=== PATIENT | male | born 1950 | race Caucasian/White ===

== ENCOUNTER 2020-02-18 09:47 | Inpatient (IN) | payer OTHER, MEDICARE ==
[~2020-02-18] VITALS: Ht 177.8 cm; Wt 98.6 kg
[~2020-02-18 09:47] MED LIST: ALBU.083IS IH; ALBU90OI INH; ALBU90OI6 INH; AMLO5 PO; ATOR10 PO; Aspir 8181 MG PO; BUPR75 PO; CARBIDOPA LEVO PO; CARBIDOPA/LEVODOPA; CARV6.25 PO; CITA20 PO; CYCL10 PO; Carbidopa-Levo1 EACH PO; DESI50 PO; DOC250 PO; DOCCAL240 PO; FISH1000 PO; FLUT.05NI; FURO20 PO; GABA300 PO; GABA600 PO; GLIP10 PO; GLUCOSE4 GM PO; HCTZ/LOSARTAN; HYDCHL25 PO; HYDR1TAB94 PO; INSUASPI SC; INSUGL100V; INSULANPEN SC; INSULIN AS100 UNIT/9 SC; LOSA50 PO; MAGNESIUM OXID500 MG PO; NAPR250 PO; OMEGA-3 FISH O1 EAC6 PO; OMEP20ER PO; OXYC10ER PO; Prilosec Otc20 MG PO; QUET300 PO; SIMV40 PO; TRAZ50 PO; TRULICITY1.5 MG/0.1 SC
[2020-02-18 10:19] LABS: BASOPHILS ABSOLUTE AUTO 0.07 K/mm3 (0.00-0.23); BASOPHILS PERCENT AUTO 1 % (0-2); EOSINOPHILS ABSOLUTE AUTO 0.31 K/mm3 (0.00-0.68); EOSINOPHILS PERCENT AUTO 2 % (0-6); Hematocrit 33.2 % (37.0-53.0); Hemoglobin 10.9 g/dL (13.5-17.5); IMMATURE GRAN ABSOLUTE AUTO 0.15 K/mm3 (0.00-0.10); IMMATURE GRAN PERCENT AUTO 1 % (0-1); LYMPHOCYTES ABSOLUTE AUTO 1.79 K/mm3 (0.84-5.20); LYMPHOCYTES PERCENT AUTO 12 % (21-46); MONOCYTES ABSOLUTE AUTO 1.95 K/mm3 (0.16-1.47); MONOCYTES PERCENT AUTO 13 % (4-13); Mean Corpuscular HGB 30.1 pg (26.0-34.0); Mean Corpuscular HGB Conc 32.8 g/dL (31.5-36.5); Mean Corpuscular Volume 92 fL (80-100); Mean Platelet Volume 10.6 fL (9.1-12.4); NEUTROPHILS ABSOLUTE AUTO 10.88 K/mm3 (1.96-9.15); NEUTROPHILS PERCENT AUTO 72 % (41-73); Platelet Count 157 K/mm3 (150-400); RDW Coefficient Variation 14.2 % (11.7-14.2); RDW Standard Deviation 47.1 fL (35.1-46.3); Red Blood Cell Count 3.62 M/mm3 (4.30-5.90); White Blood Cell Count 15.15 K/mm3 (4.00-11.30)
[2020-02-18 10:32] LABS: International Normalized Ratio 1.6; Prothrombin Time Results 16.7 Sec (9.7-11.5)
[2020-02-18 10:42] LABS: Alanine Aminotransfer (ALT/SGP 49 U/L (12-78); Albumin/Globulin Ratio 0.5 (0.8-1.8); Alk Phos 223 U/L (50-136); Anion Gap 7 mmol/L (6-16); Aspartate Aminotrans (AST/SGOT 96 U/L (12-37); Bilirubin, Total 1.3 mg/dL (0.1-1.0); Blood Urea Nitrogen 62 mg/dL (8-24); CO2, Blood 25 mmol/L (21-32); Calcium, Blood 8.3 mg/dL (8.5-10.1); Chloride, Blood 106 mmol/L (98-108); Creatinine, Blood 1.32 mg/dL (0.60-1.20); Ethanol (Alcohol), Blood, Med <3 mg/dL; Glomerular Filtration Rate 57 (60-); Glucose, Blood 172 mg/dL (70-99); Potassium, Blood 5.1 mmol/L (3.5-5.5); Sodium, Blood 138 mmol/L (136-145)
[2020-02-18 15:44] LABS: Influenza A, PCR Negative (NEGATIVE); Influenza B, PCR Negative (NEGATIVE); Resp Syncytial Virus, PCR Negative (NEGATIVE); SARS-Cov-2 (COVID-19) PCR, MMC Negative (NEGATIVE)
[2020-02-18 16:57] LABS: Source, Urine Catheter
[2020-02-18 17:03] LABS: Appearance, Urine Clear (Clear); Blood, Urine Neg (Neg); Color, Urine Amber (P-Yellow); Glucose Qualitative, Urine Neg (Neg); Ketones, Urine 1+ (Neg); Leukocyte Esterase, Urine 1+ (Neg); Nitrite, Urine Neg (Neg); Protein, Urine Neg (Neg); Urobilinogen, Urine 2+ (Normal)
[2020-02-18 17:05] LABS: Bilirubin, Urine 1+ (Neg)
[2020-02-18 17:11] LABS: Bacteria Few /hpf; Mucus Light (0-Heavy); Red Blood Cells, Urine 0-2 /hpf (0-2); Squamous Epithelial Cells Rare /hpf (Few)
[2020-02-18 17:17] LABS: U Amphetamine Screen Not Detected; U Barbituate Screen Not Detected; U Benzodiazapine Screen Not Detected; U Buprenorphine Screen Not Detected; U Cannabinoids Screen Not Detected; U Cocaine Screen Not Detected; U Methadone Screen Not Detected; U Methamphetamine Screen Not Detected; U Opiates Screen Not Detected; U Oxycodone Screen DETECTED; U Phencyclidine Screen Not Detected; U Propoxyphene Screen Not Detected
--- NOTE | 2020-02-18 18:08 | NUR ---
PT ARRIVED IN THE UNIT VIA STRETCHER, REPORT RECEIVED FROM ARSENIO GAFFNEY, PT TRANSFERRED TO BED VIA SLIDE SHEET. PT WAS OUT UPON ARRIVAL ATIVAN WAS GIVENX3 IN THE ER, PT WAS RESPONSIVE TO TOUCH GARBLES AND MOANS. VITALS HRR SINUS 90'S, BP SYSTOLIC 125, SATS ABOVE 94% ON 1L OF O2, AFEBRILE. RECTAL TUBE IN PLACE DRAINING LOOSE BROWN STOOL, LACTULOSE ENEMA WAS GIVEN IN THE ER, UMANA IN PLACE WELL DRAINING VIA GRAVITY URINE YELLOW ORANGE IN COLOR. OCREOTIDE GTT RUNNING AT 25MLS/HR. , PT ON IV ABO ROCEPHIN DAILY. PT CURRENTLY NPO AND IS ON BED REST. BED IN LOWEST POSITION AND ALARM ON FOR SAFETY. PT STILL ASLEEP AT THIS TIME, CALL LIGHTS IN REACH WILL REPORT TO ONCOMING SHIFT
[2020-02-18 18:54] LABS: Hematocrit 32.8 % (37.0-53.0); Hemoglobin 10.7 g/dL (13.5-17.5)
[2020-02-18 22:22] LABS: Hematocrit 33.7 % (37.0-53.0); Hemoglobin 11.1 g/dL (13.5-17.5)
[2020-02-19 04:11] LABS: Hematocrit 35.4 % (37.0-53.0); Hemoglobin 11.7 g/dL (13.5-17.5); Mean Corpuscular HGB 30.1 pg (26.0-34.0); Mean Corpuscular HGB Conc 33.1 g/dL (31.5-36.5); Mean Corpuscular Volume 91 fL (80-100); Mean Platelet Volume 10.4 fL (9.1-12.4); Platelet Count 178 K/mm3 (150-400); RDW Coefficient Variation 14.5 % (11.7-14.2); RDW Standard Deviation 47.2 fL (35.1-46.3); Red Blood Cell Count 3.89 M/mm3 (4.30-5.90); White Blood Cell Count 17.67 K/mm3 (4.00-11.30)
[2020-02-19 04:37] LABS: Alanine Aminotransfer (ALT/SGP 67 U/L (12-78); Albumin, Blood 2.3 g/dL (3.4-5.0); Albumin/Globulin Ratio 0.6 (0.8-1.8); Alk Phos 229 U/L (50-136); Anion Gap 9 mmol/L (6-16); Aspartate Aminotrans (AST/SGOT 149 U/L (12-37); Bilirubin, Total 2.2 mg/dL (0.1-1.0); Blood Urea Nitrogen 63 mg/dL (8-24); CO2, Blood 21 mmol/L (21-32); Calcium, Blood 8.2 mg/dL (8.5-10.1); Chloride, Blood 112 mmol/L (98-108); Creatinine, Blood 1.05 mg/dL (0.60-1.20); Glomerular Filtration Rate >60 (60-); Glucose, Blood 178 mg/dL (70-99); Potassium, Blood 4.5 mmol/L (3.5-5.5); Sodium, Blood 142 mmol/L (136-145); Total Protein, Blood 6.3 g/dL (6.4-8.2)
--- NOTE | 2020-02-19 07:45 | NUR ---
SHIFT SUMMARY PT WAS MOSTLY UNRESPONSIVE T/O THE SHIFT RESPONDING TO STERNAL RUBS AND LOUD VOICE WITH GRUNTING AND OPENING EYES BRIEFLY. PT TOSSED IN BED ALL NIGHT FREQURNTLY GETTING TANGLED IN IV TUBING AND O2 TUBING. UMANA CATH AND RECTAL TUBE INPLACE AND DRAINING TO GRAVITY. ENEMAS ADMINISTERED THROUGH RECTAL TUBE. VITALS STABLE WITH BP 144-116 SYSTOLIC, HR IN THE 90'S, O2 SATS IN THE 90'S MAINLY ON ROOM AIR DUE TO PT PULLING OFF NC. PT WOULD REST BUT BECAME AGITATED AND RESTLESS WHEN PERFORMING CARE. WILL CONTINUE TO MONITOR UNTIL SHIFT CHANGE.
--- NOTE | 2020-02-19 09:30 | NUR ---
PT REMAINS RESTLESS, TURNING AND MOVING ON THE BED. RECTAL TUBE PULLED BY PT. WILL MONITOR
--- NOTE | 2020-02-19 11:20 | NUR ---
ASSUMED CARE OF PATIENT. REPORT RECEIVED FROM LUIS GOVEA RN.
--- NOTE | 2020-02-19 17:04 | NUR ---
PATIENT DOWN TO DAYSURGERY VIA BED.
--- NOTE | 2020-02-19 17:27 | NUR ---
02/19/20 1727 Abdias Joya See Anesthesia record. PHONE CALL TO SPOUSE FOR CONSCENT
--- NOTE | 2020-02-19 18:53 | NUR ---
PATIENT RETURNED FROM PROCEDURE AT 181. JULIANNE CONDE GOT PATIENT SETTLED AND STARTED A NEW IV, ONE IV INFILTRATED DURING PROCEDURE. I ARRIVED IN ROOM AT 1830. PATIENT CONTINUES TO FIDGET AROUND IN BED. HE IS NOT ABLE TO TELL ME HIS NAME OR HIS BIRTHDAY. HE DOES NOT FOLLOW COMMANDS. THIS IS UNCHANGED FROM PREVIOUSLY. JULIANNE STATED THAT SHE HAD TO TURN THE PATIENT UP TO 6L O2 VIA NC WHEN HE RETURNED TO KEEP SPO2 >90'S. LUNGS SOUND EXP WHEEZES IN THE UPPER LOBES WITH CRACKLES THROUGHOUT. BP 147/106. CALLED DR. MICHEL. NOTIFIED HIM OF PATIENT'S INCREASED OXYGEN REQUIREMENTS AFTER PROCEDURE. DISCUSSED FLUID BALANCE. ALSO DISCUSSED PATIENT'S LEVEL OF CONSCIOUSNESS, PATIENT HAS BEEN MINIMALLY RESPONSIVE THROUGHOUT THE SHIFT. HE ORDERED LASIX 40 MG IV X1 NOW AND ASKED THAT I CALL DR. FRIEDMAN ( ON [facility]) TO NOTIFY HER. CALLED DR. FRIEDMAN AND NOTIFIED HER OF PATIENT'S INCREASE IN OXYGEN REQUIREMENTS AND LOC. DR. FRIEDMAN REVIEWED CHART AND STATED THAT SHE WOULD PUT IN ORDERS FOR LABS. AGREED WITH DR. MICHEL'S PLAN FOR LASIX 40 MG IV X1 NOW.
[2020-02-19 18:59] LABS: International Normalized Ratio 1.96; Prothrombin Time Results 20.2 Sec (9.7-11.5)
[2020-02-19 19:16] LABS: BASOPHILS ABSOLUTE AUTO 0.07 K/mm3 (0.00-0.23); BASOPHILS PERCENT AUTO 0 % (0-2); EOSINOPHILS ABSOLUTE AUTO 0.17 K/mm3 (0.00-0.68); EOSINOPHILS PERCENT AUTO 1 % (0-6); Hemoglobin 11.2 g/dL (13.5-17.5); IMMATURE GRAN ABSOLUTE AUTO 0.23 K/mm3 (0.00-0.10); IMMATURE GRAN PERCENT AUTO 1 % (0-1); LYMPHOCYTES ABSOLUTE AUTO 1.61 K/mm3 (0.84-5.20); LYMPHOCYTES PERCENT AUTO 8 % (21-46); MONOCYTES PERCENT AUTO 11 % (4-13); Mean Corpuscular HGB 30.4 pg (26.0-34.0); Mean Corpuscular HGB Conc 32.9 g/dL (31.5-36.5); Mean Corpuscular Volume 92 fL (80-100); NEUTROPHILS ABSOLUTE AUTO 15.12 K/mm3 (1.96-9.15); NEUTROPHILS PERCENT AUTO 78 % (41-73); Platelet Count 169 K/mm3 (150-400); RDW Coefficient Variation 14.6 % (11.7-14.2); RDW Standard Deviation 48.1 fL (35.1-46.3); Red Blood Cell Count 3.69 M/mm3 (4.30-5.90)
[2020-02-19 19:37] LABS: Anion Gap 11 mmol/L (6-16); Blood Urea Nitrogen 55 mg/dL (8-24); Bun/Creatinine Ratio 61.7 (12.0-20.0); CO2, Blood 20 mmol/L (21-32); Calcium, Blood 8.2 mg/dL (8.5-10.1); Chloride, Blood 115 mmol/L (98-108); Creatinine, Blood 0.89 mg/dL (0.60-1.20); Glomerular Filtration Rate >60 (60-); Glucose, Blood 205 mg/dL (70-99); Potassium, Blood 4.5 mmol/L (3.5-5.5); Sodium, Blood 146 mmol/L (136-145)
--- NOTE | 2020-02-19 23:30 | NUR ---
ASSUMPTION OF CARE RECEIVED BEDSIDE REPORT FROM VIKTORIA GAFFNEY AND ASSUMED CARE FOR REMAINDER OF SHIFT. PT IS RESTLESS, ROLLING FROM SIDE TO SIDE FREQUENTLY, PULLING AT NASAL CANNULA, CONT BIOX IN PLACE WITH SATS 93% ON 6L. OCTREOTIDE RUNNING AT 25 ML/HR. BED ALARM ON. WILL CONTINUE TO MONITOR FREQUENTLY AND WILL CONTINUE PLAN OF CARE.
--- NOTE | 2020-02-19 23:51 | NUR ---
SHIFT SUMMARY: PATIENT RESPONDS TO VERBAL STIMULATION. UNABLE TO SAY HIS NAME OR FOLLOW DIRECTIONS. RESTLESS IN BED, REPOSITIONS SELF. LACTULOSE ENEMAS GIVEN, MOD AMT SOFT STOOL RETURNED. REMAINS NPO. HAD PROCEDURE THIS EVENING. REQUIRED 6L O2 VIA NC UPON RETURN FROM PROCEDURE AND LUNGS HAD CRACKLES/WHEEZES, ONE TIME ORDER LASIX GIVEN, LUNG SOUNDS IMPROVED. PATIENT FREQUENTLY PULLS OFF OXYGEN, HAVE TO REPLACE FREQUENTLY, CONTINUES ON 6L NC WITH IT PLACED IN HIS MOUTH HE DOES NOT LIKE TO HAVE IT IN HIS NOSE. REPORT GIVEN TO RICK GAFFNEY.
[2020-02-20 03:23] LABS: Hematocrit 34.8 % (37.0-53.0); Hemoglobin 11.4 g/dL (13.5-17.5); Mean Corpuscular HGB 29.6 pg (26.0-34.0); Mean Corpuscular HGB Conc 32.8 g/dL (31.5-36.5); Mean Corpuscular Volume 90 fL (80-100); Mean Platelet Volume 9.8 fL (9.1-12.4); Platelet Count 137 K/mm3 (150-400); RDW Coefficient Variation 14.7 % (11.7-14.2); RDW Standard Deviation 47.9 fL (35.1-46.3); Red Blood Cell Count 3.85 M/mm3 (4.30-5.90)
[2020-02-20 03:39] LABS: Anion Gap 10 mmol/L (6-16); Blood Urea Nitrogen 53 mg/dL (8-24); Bun/Creatinine Ratio 56.6 (12.0-20.0); CO2, Blood 19 mmol/L (21-32); Calcium, Blood 8.1 mg/dL (8.5-10.1); Chloride, Blood 118 mmol/L (98-108); Creatinine, Blood 0.94 mg/dL (0.60-1.20); Glomerular Filtration Rate >60 (60-); Glucose, Blood 212 mg/dL (70-99); Potassium, Blood 4.3 mmol/L (3.5-5.5); Sodium, Blood 147 mmol/L (136-145)
--- NOTE | 2020-02-20 06:30 | NUR ---
SHIFT SUMMARY PT HAS BEEN RESTLESS AND FREQUENTLY DISPLACING O2 WITH ROLLING FROM SIDE TO SIDE. GROSS MOTOR MOVEMENT OF ALL EXTREMITIES, NO PURPOSEFUL FINE MOTOR SKILLS AND DOES NOT FOLLOW COMMANDS. OPENS EYES TO VOICE, NAME RECOGNITION, LIMITED VERBALIZING. INCREASING WORK OF BREATHING AND DESATS FREQUENTLY. CONT BIOX WITH SATS IN LOW 90'S WITH VENTI MASK AT 45%. PLACED SOFT WRIST RESTRAINTS ON BILATERAL UE'S FOR PROTECTION OF LINES/TUBES. OVERALL STATUS: WORSENING R/T INCREASING WORK OF BREATHING AND CONFUSION. GAVE REPORT AT BEDSIDE TO DILLON GAFFNEY WHILE RT (TOBIAS) PRESENT IN THE ROOM. PT HAS BEEN PLACED ON NON-REBREATHER TO MAINTAIN SATS >90%. PLAN FOR UPDATE TO HOSPITALIST KRISTI FOR FURTHER ORDERS AT THIS TIME.
[2020-02-20 07:09] LABS: HBSAG SCREEN Negative (Negative); HEP B CORE AB, TOT Negative (Negative); HEP C VIRUS AB 0.2 (0.0-0.9)
[2020-02-20 08:09] LABS: HEP A AB, IGM Negative (Negative); HEP B CORE AB, IGM Negative (Negative)
[2020-02-20 08:33] LABS: PCO2 Arterial 34.7 mmHg (35-45); PO2 Arterial 77.6 mmHg (80-100); pH Blood Arterial 7.42 (7.35-7.45)
--- NOTE | 2020-02-20 09:35 | NUR ---
ASSUMED CARE OF PT, RECEIVED REPORT FROM GULSHAN CABRERA. PT HAD UPPER ENDOSCOPY 02/19/20, HAD 6 BANDS AND 1 BIOPSY. PER REPORT, UPON RETURNING TO ROOM PT BEGAN TO REQUIRE OXYGEN THERAPY WITH AN INCREASING NEED TODAY. PT INITIALLY RECEIVING O2 VIA VENTI MASK AT 45% WITH O2 SATS AT 86%, WAS PLACED ON NONREBREATHER AT 15 L/MIN WITH O2 SATS UP TO 94%. DR MICHEL CONSULTED, STAT CHEST X-RAY AND ABG COMPLETED AND PT PLACED ON BIPAP. PT WAS IN SOFT RESTRAINTS UNTIL DECISION TO PLACE PT ON BIPAP. RESTRAINTS REMOVED, PT MOVING ARMS FREELY AND FREQUENTLY WITH NUMEROUS ATTEMPTS TO PULL BIPAP OFF. PT EASILY PREVENTED FROM DOING SO, BUT QUICKLY REACHES BACK UP TO TOUCH BIPAP. PT HAS BEEN TRANSFERED TO ICU FOR CONTINUATION OF CARE. BEDSIDE REPORT GIVEN TO GULSHAN PENG.
--- NOTE | 2020-02-20 11:23 | NUR ---
PT TRANSFERRED TO ICU FROM PCU AT 0915. REPORT FROM DILLON GAFFNEY. PT ON CPAP 8/40%. PT FIDGITING IN BED. DIFFICULT TO REDIRECT. RESTRAINTS PLACED ON ARRIVAL TO UNIT. PT CONTINUES TO PULL ON RESTRAINTS AND TWIST IN BED. DR MICHEL NOTIFIED. PRECEDEX GTT ORDERED AND STARTED, ELECTROMECHANICAL ENGINEER CONSULT ORDERED. DR LEMUS AWARE. PT PALE, COOL. LUNGS c CRACKLES IN BASES. SCATTERED RASH TO BODY, CONCENTRATED ON KNEES, BLANACHS. ABRASIONS TO MEDIAL AND LATERAL ANKLES. ABD ROUND, FIRM. UMANA PATENT, DRAINING CLEAR YELLOW URINE TO GRAVITY. VSS. WILL CONTINUE TO MONITOR.
[2020-02-20 14:37] LABS: International Normalized Ratio 2.01; Prothrombin Time Results 20.7 Sec (9.7-11.5)
[2020-02-20 15:07] LABS: Source, Urine Catheter
[2020-02-20 15:19] LABS: Automated BF WBC Count 0.077 K/mm3 (0-999); Body Fluid WBC Count 77 /mm3 (0-999)
[2020-02-20 15:26] LABS: Albumin, Body Fluid 0.2 g/dL
[2020-02-20 15:29] LABS: Glucose, Body Fluid 232 mg/dL
[2020-02-20 15:37] LABS: Appearance, Urine Clear (Clear); Bilirubin, Urine Neg (Neg); Blood, Urine 1+ (Neg); Color, Urine Amber (P-Yellow); Glucose Qualitative, Urine Neg (Neg); Ketones, Urine Neg (Neg); Leukocyte Esterase, Urine Neg (Neg); Nitrite, Urine Neg (Neg); Protein, Urine Neg (Neg); Specific Gravity, Urine 1.015 (1.003-1.022); Urobilinogen, Urine 1+ (Normal)
[2020-02-20 16:02] LABS: RBC Count, Body Fluid 7 /mm3 (0-0)
[2020-02-20 16:03] LABS: Appearance, Body Fluid Clear (Clear); Color, Body Fluid L Yellow (None-Yellow)
[2020-02-20 16:10] LABS: Bacteria Few /hpf; Mucus Mod (0-Heavy); Renal Epithelial Rare /hpf (0-Rare); Squamous Epithelial Cells Not Seen /hpf (Few); Transitional Epithelial Cells Few /hpf (0-Rare); White Blood Cells, Urine 0-2 /hpf (0-5)
[2020-02-20 16:46] LABS: Total Cell Count, Body Fluid 100
--- NOTE | 2020-02-20 17:29 | NUR ---
SHIFT SUMMARY PT TRANSFERRED TO ICU FROM PCU THIS SHIFT. PT ON CPAP 8/40% AND PRECEDEX 0.1 MCG/KG/HR. PT RESPONSIVE TO PAINFUL STIMULI. TOLERATING CPAP WELL. LUNGS DIMINISHED IN BASES. PT DIURESED THIS SHIFT, 500 ML DARK EZEQUIEL URINE OUT, SENT TO LAB FOR CULTURE. PARACENTESIS THIS SHIFT, 800 ML CLEAR YELLOW URINE OUT, SENT TO LAB. PT TOLERATED PROCEDURE WELL. NO ALBUMIN POST PROCEDURE PER PHARMACY. BP STABLE. NSR, RATE 60-70'S. WILL CONTINUE TO MONITOR UNTIL REPORT TO ONCOMING NURSE.
--- NOTE | 2020-02-20 19:00 | NUR ---
ASSUMED PT CARE BEDSIDE REPORT FROM ONEIL GAFFNEY, ASSUMED PT CARE. PT CONFUSED AND THRASHING AROUND. PT IN BILATERAL WRIST RESTRAINTS AND ROCKY NOW APPLIED. PT ON BIPAP, NOT TOLERATING MASK, CONSTANTLY SHAKING HEAD BACK AND FORTH AND DISCONNECTING TUBING. MULT STAFF AT [facility], [facility] ATTEMPTS TO REORIENT AND REASSURE PT. PT HAS 20G TO RIGHT AC WITH PRECEDEX INF AT 0.7MCG/KG/HR, SITE WNL. PT HAS 20G TO LEFT AC WITH OCTREOTIDE INF AT 25ML/HR, SITE WNL. SCDS IN PLACE. PT MOVES ALL EXTREMITIES INDEPENDENTLY. PT HAS UMANA DRAINING CLEAR YELLOW URINE. ATTENDS IN PLACE, CLEAN AND DRY. ST IN 90S PER MONITOR. BP STABLE. CALL LIGHT IN REACH, FREQUENT MONITORING. SEE FULL SHIFT ASSESSMENT.
[2020-02-21 03:44] LABS: BASOPHILS ABSOLUTE AUTO 0.01 K/mm3 (0.00-0.23); BASOPHILS PERCENT AUTO 0 % (0-2); EOSINOPHILS ABSOLUTE AUTO 0.01 K/mm3 (0.00-0.68); EOSINOPHILS PERCENT AUTO 0 % (0-6); Hematocrit 31.8 % (37.0-53.0); IMMATURE GRAN ABSOLUTE AUTO 0.04 K/mm3 (0.00-0.10); IMMATURE GRAN PERCENT AUTO 0 % (0-1); LYMPHOCYTES ABSOLUTE AUTO 0.94 K/mm3 (0.84-5.20); LYMPHOCYTES PERCENT AUTO 11 % (21-46); MONOCYTES ABSOLUTE AUTO 0.68 K/mm3 (0.16-1.47); MONOCYTES PERCENT AUTO 8 % (4-13); Mean Corpuscular HGB 30.2 pg (26.0-34.0); Mean Corpuscular HGB Conc 31.4 g/dL (31.5-36.5); Mean Platelet Volume 10.7 fL (9.1-12.4); NEUTROPHILS ABSOLUTE AUTO 7.24 K/mm3 (1.96-9.15); NEUTROPHILS PERCENT AUTO 81 % (41-73); NRBC ABSOLUTE 0.02 K/mm3 (0.00-0.02); NRBC Auto 0.2 /100 WBC (0.0-0.2); Platelet Count 75 K/mm3 (150-400); RDW Standard Deviation 51.3 fL (35.1-46.3); Red Blood Cell Count 3.31 M/mm3 (4.30-5.90); White Blood Cell Count 8.92 K/mm3 (4.00-11.30)
[2020-02-21 03:47] LABS: Mean Corpuscular Volume 96 fL (80-100)
[2020-02-21 03:56] LABS: International Normalized Ratio 2.29; Prothrombin Time Results 23.4 Sec (9.7-11.5)
[2020-02-21 04:02] LABS: Albumin/Globulin Ratio 0.6 (0.8-1.8); Bilirubin, Total 1.7 mg/dL (0.1-1.0); Calcium, Blood 8.1 mg/dL (8.5-10.1); Creatinine, Blood 1.4 mg/dL (0.60-1.20); Globulin, Blood 3.4 g/dL (2.2-4.0); Total Protein, Blood 5.4 g/dL (6.4-8.2)
--- NOTE | 2020-02-21 10:31 | NUR ---
Spoke with Dr Elder and discussed case prior to Pt visit. Dr Elder reports family may benefit from discussion regarding code status. Pt resting in bed and receiving care from Bedside RN Yoselyn. Discussed case and plan of care. Pt's Oldest daughter Marii waiting out in ICU hallway. Provided update and discussed plan of care. Engaged in therapeutic discussion regarding the importance of family considering code status and Pt's wishes for life sustaining treatment. Marii tearful at times during discussion and this RN offered emotional support. Marii states she doesn't think Pt would want CPR in his current condition. Instructed plan to call Pt's spouse to have further conversation regarding code status. Marii reports not spending much time with Pt due to strained relationship between her and Pt's spouse. Marii expresses appreciation of conversation and reports no other concerns at this time. Attempted to contacted Pt's spouse Rachel. Left message on [employer] with request for a return phone call. Palliative Care will remain available for supportive and therapeutic visits.
--- NOTE | 2020-02-21 13:55 | NUR ---
REASSESSMENT PT WAS MINIMALLY RESPONSIVE THIS MORNING SO PRECEDEX WAS SLOWLY TITRATED OFF. OXYGEN HAD ALSO BEEN ABLE TO TITRATE DOWN TO 5L ON THE HIGH FLOW NC. ABOUT 1230 PT ALL OF A SUDDEN WOKE UP, ORIENTED ONLY TO SELF, TRYING TO GET OUT OF BED, PULLING AT IV AND OXYGEN. PT ALSO STARTED TO DESATURATE WITH ALL THE ACTIVITY WITH SPO2 IN THE LOW 80S WITH HI FLOW NC TURNED UP TO 10L. RT NOTIFIED AND BROUGHT CPAP FOR PT. PRECEDEX TURNED UP. ATIVAN GIVEN WELL. PT PLACED IN WRIST RESTRAINTS AND VEST TAKEN OFF PT WAS NOW JUST PULLING AT LINES. PT RELAXED SOME WITH MEDICATIONS, BUT STILL VERY RESTLESS AND AGITATED. FENTANYL GIVEN AND PT FINALLY RELAXED. AFTER PT WAS SEDATED, REPOSITIONED HIM. RECTAL TUBE HAD COME OUT DURING PT'S AGITATION AND THE STOOL ON THE END WAS BROWN AND JUST SOFT SO TUBE NOT REPLACED AT THIS TIME. PT RESTING QUIETLY NOW. PRECEDEX AT 0.5MCG/KGHR, CPAP ON WITH 5L BLEED IN. WITH LOWER PRECEDEX RATE PT'S HR HAD BEEN IN THE 60S AND 70S, NOW WITH PRECEDEX BACK UP HR SB IN THE 50S AGAIN, BP STABLE. LUNGS CLEAR, DIM. PT'S CALLED EARLIER THIS MORNING AND STATED THAT PT WOULD NOT WANT TO BE ON LIFE SUPPORT. DISCUSSED CODE STATUS OPTIONS WITH HIM AND PT STATES SHE THINKS THAT HE WOULD WANT TO BE DNR. PASSED THIS ON TO DR. LEMUS AND SHE STATED SHE WOULD CALL PT'S LATER TO UPDATE HER AND DISCUSS CODE STATUS WITH HER.
--- NOTE | 2020-02-21 18:43 | NUR ---
SHIFT SUMMARY PT REMAINS SEDATED AFTER GETTING VERY AGITATED WHEN SEDATION WAS TITRATED DOWN TODAY. PT DESATURATES QUICKLY WITH MINIMAL STIMULUS. REMAINS ON CPAP, PRESSURE 8 WITH 7L BLEED IN. WHEN RESTRAINTS ARE OFF PT QUICKLY STARTS REACHING FOR CPAP MASK. LUNGS STILL CLEAR, BUT DIM. SB, BP STABLE. ABD MODERATELY DISTENDED STILL, HYPOACTIVE BT. NO BM THIS AFTERNOON. UMANA WITH CL EZEQUIEL URINE. SPOKE WITH PT'S TWICE TODAY TO PROVIDE UPDATES. CONTINUING TO MONITOR.
--- NOTE | 2020-02-21 19:30 | NUR ---
ASSUMED PT CARE BEDSIDE REPORT WITH VIKTORIA TORRES RN. ASSUMED PT CARE. PT SEDATED WITH PRECEDEX AT 0.3MCG/KG/KG, CURRENTLY RESTING COMFORTABLY. SANDOSTATIN INF AT 25ML/HR TO 20G IN R WRIST. D5 INFUSING AT 75ML/HR TO 20G TO ALEXANDRA. SITES WNL, DRESSINGS C/D/I. BILATERAL SOFT WRIST RESTRAINTS IN PLACE AND SECURE. UMANA DRAINING EZEQUIEL COLORED URINE. PT RESPONDS TO VERBAL AND TACTILE STIMULI. RELAXES EASILY. LUNG SOUNDS DIMINISHED, PT ON CPAP, PRESSURE OF 8 WITH 8L BLEED IN. STATS >92%. BP STABLE. HR 50S SB. PULSES STRONG AND EQUAL. PT MOVES SOME INDEPENDENTLY IN BED. SEE FULL ASSESSMENT.
--- NOTE | 2020-02-21 20:30 | NUR ---
DNI DR LEMUS SPOKE WITH PTS KUSHAL AND AFTER DISCUSSION PT CODE STATUS CHANGED TO DNI.
[2020-02-22 04:13] LABS: BASOPHILS ABSOLUTE AUTO 0.01 K/mm3 (0.00-0.23); BASOPHILS PERCENT AUTO 0 % (0-2); EOSINOPHILS PERCENT AUTO 1 % (0-6); Hematocrit 32.5 % (37.0-53.0); Hemoglobin 10.4 g/dL (13.5-17.5); IMMATURE GRAN ABSOLUTE AUTO 0.05 K/mm3 (0.00-0.10); IMMATURE GRAN PERCENT AUTO 1 % (0-1); LYMPHOCYTES ABSOLUTE AUTO 0.85 K/mm3 (0.84-5.20); LYMPHOCYTES PERCENT AUTO 9 % (21-46); MONOCYTES ABSOLUTE AUTO 0.79 K/mm3 (0.16-1.47); MONOCYTES PERCENT AUTO 8 % (4-13); Mean Corpuscular HGB 30.2 pg (26.0-34.0); Mean Corpuscular Volume 95 fL (80-100); Mean Platelet Volume 11.7 fL (9.1-12.4); NEUTROPHILS ABSOLUTE AUTO 8.13 K/mm3 (1.96-9.15); NEUTROPHILS PERCENT AUTO 82 % (41-73); NRBC ABSOLUTE 0.04 K/mm3 (0.00-0.02); NRBC Auto 0.4 /100 WBC (0.0-0.2); Platelet Count 65 K/mm3 (150-400); RDW Coefficient Variation 15.2 % (11.7-14.2); Red Blood Cell Count 3.44 M/mm3 (4.30-5.90); White Blood Cell Count 9.93 K/mm3 (4.00-11.30)
[2020-02-22 04:27] LABS: International Normalized Ratio 2.58; Prothrombin Time Results 26.2 Sec (9.7-11.5)
[2020-02-22 04:38] LABS: Magnesium, Blood 2.5 mg/dL (1.6-2.4)
[2020-02-22 04:39] LABS: Albumin, Blood 2.5 g/dL (3.4-5.0); Albumin/Globulin Ratio 0.8 (0.8-1.8); Bilirubin, Total 1.3 mg/dL (0.1-1.0); Bun/Creatinine Ratio 55.9 (12.0-20.0); Creatinine, Blood 1.36 mg/dL (0.60-1.20); Globulin, Blood 3.2 g/dL (2.2-4.0); Potassium, Blood 3.3 mmol/L (3.5-5.5); Total Protein, Blood 5.7 g/dL (6.4-8.2)
--- NOTE | 2020-02-22 06:18 | NUR ---
SHIFT SUMMARY PT HAD UNEVENTFUL SHIFT. REMAINS SEDATED ON PRECEDEX 0.4MCG/KG/HR, PT CONFUSED, RESPONSIVE TO VERBAL AND TACTILE STIMULI. PT HAS 20G TO ALEXANDRA WITH D5 INF AT 75ML/HR AND PRECEDEX. PT HAS 20G TO RIGHT WRIST WITH SANDOSTATIN INF AT 25ML/HR. HR 70S SR, BP STABLE. LUNG SOUNDS DIMINISHED, PT ON CPAP, PRESSURE 10 WITH 10L BLEED IN. PT MOVES ALL EXT, RESTRAINTS SECURE. UMANA DRAINING EZEQUIEL COLORED URINE. NO BM. ABD SOFT BUT DISTENDED. BOWEL SOUNDS ACTIVE. WILL REPORT TO ONCOMING SHIFT.
--- NOTE | 2020-02-22 10:39 | NUR ---
ASSUMPTION OF CARE ASSUMED CARE FROM NOC RN. PT RESTING DURING REPORT. PERCEDEX, SANDOSTATIN, D5 CONTINUOUS INFUSIONS RUNNING DURING SHIFT CHANGE. PT RECEIVED MORNING MEDICATIONS INCLUDING LACTULOSE ENEMA. SCANT AMOUNTS OF STOOL WERE RELEASED BUT NO LARGE FORMED STOOLS. PT BECAME AGITATED FOLLOWING THE ENEMA AND WAS MOANING AND CONFUSED ABOUT BEING IN RESTRAINTS. SOFT WRIST RESTRAINTS HAVE BEEN ON THROUGHOUT THE SHIFT AND THE ORDER WAS RENEWED AT 0800. CIRCULATION AND SKIN IS WNL. RESTRAINTS ARE APPLIED PT CONTINUES TO PULL AT IV LINES, CATHETER AND CPAP. PT IS CONFUSED.
--- NOTE | 2020-02-22 10:46 | NUR ---
Case conferenced with Bedside GULSHAN Colvin and reviewed plan of care.
--- NOTE | 2020-02-22 11:10 | NUR ---
RT ATTEMPTED TO DECREASE 02 NEEDS. TITRATED DOWN TO 6L, PT BECAME AGITATED O2 VIA CPAP NEEDED TO BE TITRATED UP TO 10L.
[2020-02-22 14:31] LABS: Bun/Creatinine Ratio 53.1 (12.0-20.0); Calcium, Blood 8.1 mg/dL (8.5-10.1); Creatinine, Blood 1.43 mg/dL (0.60-1.20); Potassium, Blood 3.2 mmol/L (3.5-5.5)
--- NOTE | 2020-02-22 18:48 | NUR ---
SHIFT SUMMARY PT WAS AGITATED ON AND OFF THROUGHOUT THE DAY, PT REMAINED IN SOFT WRIST RESTRAINTS HE WOULD PULL ON LINES, UMANA AND CPAP/BIPAP MASK IF HE WAS NOT RESTRAINED. PT STRUGGLED TO MAINTAIN SAT GREATER THAN 89% ON CPAP, RT SWITCHED PT TO BIPAP SAT NOW MAINTAINING AT 92%. PRECEDEX HAS BEEN TITRATED DURING THE DAY IS IS CURRENTLY @ 0.3MCG. A PICC LINE WAS PLACED THIS AFTERNOON AND HAS D5% CONCURRENT WITH KCL 20MEQ AND SANDOSTATIN RUNNING AND 1 LUMEN SAILINE LOCKED. PT IS NPO WITH EZEQUIEL COLORED URINE. PT RECEIVED LACTULOSE ENEMA THIS MORNING BUT HAS HAD NO SIGNIFICANT STOOL OUTPUT. SMALL ABRAISONS ON BILATERAL ANKLES HAVE MEPILEX IN PLACE. SCDS IN PLACE. BRUISING OVER BUE. PT IS CURRENTLY RESTING
--- NOTE | 2020-02-22 21:25 | NUR ---
PATIENT SLEEPING AWAKENS TO SLIGHT STIMULI, CONTINUES TO BE CONFUSED. PRECEDEX INFUSING 0.3 MCG, TO HELP PATIENT REMAIN CALM. BIPAP IN PLACE 10/6 FIO2 50% BILAT WRIST RESTRAINTS REMAIN IN PLACE DUE TO CONFUSION AND PULLING AT BIPAP AND LINES.
--- NOTE | 2020-02-22 23:26 | NUR ---
PATIENT AWAKE, LACTULOSE ENEMA AT APROX 2200 PATIENT MORE AWAKE, YELLING OUT "GET ME THE FUCK OUT OF THIS", ATTEMPT BREAK FROM BIPAP ON 10L/NC WITH ORAL CARE, BIOX DOWN TO 79% BIPAP REPLACED. AT 2230 PATIENT ABLE TO FOLLOW DIRECTIONS TO TURN ON HIS LEFT SIDE FOR LACTULOSE ENEMA, PATIENT ABLE TO HOLD ONLY A SMALL AMT FOR SHORT TIME, CLEAR WITH SMALL BLACK FLECKS RETURN, WHEN CLEANING PATIENT AFTER ENEMA HE HAD MODERATE AMT OF BRIGHT RED BLOOD FROM HIS RECTUM, WILL CONTINUE TO MONITOR. AT 2300 PATIENT CONTINUE TO BE RESTLESS AND UPSET AFTER ENEMA AND LINEN CHANGE, UNABLE TO RELAX, ATTEMPT A SECOND TIME OFF BIPAP WITH 15L/NC AND PATIENT BIOX AGAIN DROPPING TO 80% PRECEDEX INCREASED AND FENTANYL IV GIVEN. DOCTOR ALLAN NOTIFIED OF BLOOD WITH ENEMA, WILL MONITOR FOR CONTINUED BLEEDING. PICC LINE DRESSING REINFORCED DUE TO OOZING AT INSERTION SITE.
[2020-02-23 04:41] LABS: BASOPHILS PERCENT AUTO 0 % (0-2); EOSINOPHILS ABSOLUTE AUTO 0.22 K/mm3 (0.00-0.68); EOSINOPHILS PERCENT AUTO 3 % (0-6); Hemoglobin 10.5 g/dL (13.5-17.5); IMMATURE GRAN PERCENT AUTO 1 % (0-1); LYMPHOCYTES ABSOLUTE AUTO 0.79 K/mm3 (0.84-5.20); LYMPHOCYTES PERCENT AUTO 10 % (21-46); MONOCYTES ABSOLUTE AUTO 0.62 K/mm3 (0.16-1.47); MONOCYTES PERCENT AUTO 8 % (4-13); Mean Corpuscular HGB 30.2 pg (26.0-34.0); Mean Corpuscular HGB Conc 32.8 g/dL (31.5-36.5); Mean Corpuscular Volume 92 fL (80-100); NEUTROPHILS PERCENT AUTO 78 % (41-73); NRBC ABSOLUTE 0.04 K/mm3 (0.00-0.02); NRBC Auto 0.5 /100 WBC (0.0-0.2); RDW Coefficient Variation 15.6 % (11.7-14.2); RDW Standard Deviation 49.3 fL (35.1-46.3); Red Blood Cell Count 3.48 M/mm3 (4.30-5.90); White Blood Cell Count 7.93 K/mm3 (4.00-11.30)
[2020-02-23 04:44] LABS: Platelet Count 30 K/mm3 (150-400)
[2020-02-23 04:45] LABS: International Normalized Ratio 2.64; Prothrombin Time Results 26.7 Sec (9.7-11.5)
[2020-02-23 04:50] LABS: Alanine Aminotransfer (ALT/SGP 47 U/L (12-78); Albumin, Blood 2.4 g/dL (3.4-5.0); Albumin/Globulin Ratio 0.9 (0.8-1.8); Alk Phos 151 U/L (50-136); Anion Gap 6 mmol/L (6-16); Aspartate Aminotrans (AST/SGOT 67 U/L (12-37); Bilirubin, Total 1.5 mg/dL (0.1-1.0); Blood Urea Nitrogen 69 mg/dL (8-24); Bun/Creatinine Ratio 56.6 (12.0-20.0); CO2, Blood 22 mmol/L (21-32); Calcium, Blood 7.6 mg/dL (8.5-10.1); Chloride, Blood 121 mmol/L (98-108); Creatinine, Blood 1.22 mg/dL (0.60-1.20); Globulin, Blood 2.8 g/dL (2.2-4.0); Glomerular Filtration Rate >60 (60-); Glucose, Blood 202 mg/dL (70-99); Potassium, Blood 3.5 mmol/L (3.5-5.5); Sodium, Blood 149 mmol/L (136-145); Total Protein, Blood 5.2 g/dL (6.4-8.2)
--- NOTE | 2020-02-23 07:36 | NUR ---
SUMMARY PATIENT CONTINUES ON CPAP 8 AND ON 12L/NC FOR SHORT BREAK FOR ORAL CARE. DESAT QUICKLY. PATIENT ANXIOUS AND RESTLESS WHEN AWAKE. PRECEDEX CONTINUES AT 0.4MCG AND MEDICATED WITH FENTANYL SEVERAL TIMES DURING THE NIGHT FOR NOSE AND BACK PAIN. PICC LINE CONTINUES TO OOZE, MORE SO WHEN PATIENT RESTLESS. NO BM AFTER ENEMA AND NO SIGN OF NAUSEA. PLATELET COUNT ON LAB CONTINUES TO DROP.
--- NOTE | 2020-02-23 13:16 | NUR ---
REASSESSMENT PT REMAINS SEDATED ON PRECEDEX THIS MORNING. HE WOKE UP AFTER HIS LACTULOSE ENEMA AND BATH AND WAS ABLE TO SAY THAT HE WAS AT [facility], BUT DIDN'T ANSWER ANY OTHER QUESTIONS. TOOK HIM OFF CPAP AT THAT TIME AND PLACED HIM ON 12L HI FLOW NC AND HE ONLY LASTED FOR ABOUT 5 MINUTES BEFORE HE DESATURATED INTO THE 80S. TRIED PUTTING NC IN HIS MOUTH BECAUSE PT MOUTH BREATHES BUT HE STILL DESATURATED. PT BECAME VERY AGITATED WHEN CPAP REPLACED. FENTANYL GIVEN FOR PAIN CONTROL AND AGITATION AND PT CALMED DOWN. LUNGS REMAIN CLEAR BUT DIM, ACCESS MANAGER COUGH WHEN THE MASK WAS OFF. SR WITH OCC PVC. SBP IN THE 90S. UMANA DRAINING EZEQUIEL URINE. PT HAD SMALL AMT OF RED BLOOD/MUCOUS COME OUT AFTER ENEMA, BUT NO STOOL AND PT WASN'T ABLE TO RETAIN THE ENEMA FOR ANY LENGTH OF TIME. APOKE WITH PT'S AND PROVIDED UPDATE. CONTINUING TO MONITOR.
--- NOTE | 2020-02-23 16:58 | NUR ---
SHIFT SUMMARY PT HAS REMAINED DEPENDENT ON THE CPAP TODAY. WITH CPAP OFF AND ON HI FLOW NC HE STILL DESATURATES WITHIN 5 MINUTES. HE IS STILL CONFUSED, YELLING OUT THIS AFTERNOON THAT HE WANTS THE MASK OFF IN THE SUMMER AND THAT HE WANTS TO GO HOME. NOT REDIRECTABLE, REQUIRED MEDICATION TO GET HIM TO CALM DOWN. LUNGS ARE CLEAR BUT DIM. SR, SBP IN THE 90S. CLINIMIX STARTED THIS AFTERNOON. PT'S TANG CAME BY THIS AFTERNOON AND WAS UPDATED AT THE BEDSIDE. CONTINUING TO MONITOR.
--- NOTE | 2020-02-23 20:06 | NUR ---
PATIENT AWAKENS TO SLIGHT STIMULI, BECOMING RESTLESS AND AGITATED WHEN AWAKE, YELLING OUT GET THIS OFF ME WHILE PULLING AT CPAP. CPAP OFF WITH 10L NC PLACED BIOX DROPPING TO 84% WHEN OFF CPAP. ORAL CARE DONE AND BIPAP REPLACED. BILAT WRIST RESTRAINTS CONTINUED DUE TO PATIENT PULLING AT CPAP AND UMANA. PRECEDEX CONTINUES AT 0.7MCG TO HELP PATIENT RELAX.
[2020-02-24 04:18] LABS: BASOPHILS ABSOLUTE AUTO 0.01 K/mm3 (0.00-0.23); BASOPHILS PERCENT AUTO 0 % (0-2); EOSINOPHILS ABSOLUTE AUTO 0.21 K/mm3 (0.00-0.68); EOSINOPHILS PERCENT AUTO 3 % (0-6); Hemoglobin 9.8 g/dL (13.5-17.5); IMMATURE GRAN ABSOLUTE AUTO 0.07 K/mm3 (0.00-0.10); IMMATURE GRAN PERCENT AUTO 1 % (0-1); LYMPHOCYTES ABSOLUTE AUTO 0.62 K/mm3 (0.84-5.20); LYMPHOCYTES PERCENT AUTO 8 % (21-46); MONOCYTES ABSOLUTE AUTO 0.59 K/mm3 (0.16-1.47); MONOCYTES PERCENT AUTO 8 % (4-13); Mean Corpuscular HGB 29.9 pg (26.0-34.0); Mean Corpuscular HGB Conc 31.6 g/dL (31.5-36.5); Mean Corpuscular Volume 95 fL (80-100); Mean Platelet Volume 13.3 fL (9.1-12.4); NEUTROPHILS ABSOLUTE AUTO 6.14 K/mm3 (1.96-9.15); NEUTROPHILS PERCENT AUTO 81 % (41-73); NRBC ABSOLUTE 0.06 K/mm3 (0.00-0.02); NRBC Auto 0.8 /100 WBC (0.0-0.2); RDW Coefficient Variation 16.4 % (11.7-14.2); RDW Standard Deviation 51.7 fL (35.1-46.3); Red Blood Cell Count 3.28 M/mm3 (4.30-5.90); White Blood Cell Count 7.64 K/mm3 (4.00-11.30)
[2020-02-24 04:25] LABS: Platelet Count 24 K/mm3 (150-400)
[2020-02-24 04:32] LABS: International Normalized Ratio 2.73; Prothrombin Time Results 27.6 Sec (9.7-11.5)
[2020-02-24 04:40] LABS: Alanine Aminotransfer (ALT/SGP 46 U/L (12-78); Albumin, Blood 2.4 g/dL (3.4-5.0); Albumin/Globulin Ratio 0.9 (0.8-1.8); Alk Phos 155 U/L (50-136); Anion Gap 6 mmol/L (6-16); Aspartate Aminotrans (AST/SGOT 71 U/L (12-37); Bilirubin, Total 1.7 mg/dL (0.1-1.0); Blood Urea Nitrogen 59 mg/dL (8-24); Bun/Creatinine Ratio 62.8 (12.0-20.0); CO2, Blood 22 mmol/L (21-32); Calcium, Blood 7.5 mg/dL (8.5-10.1); Chloride, Blood 119 mmol/L (98-108); Creatinine, Blood 0.94 mg/dL (0.60-1.20); Globulin, Blood 2.6 g/dL (2.2-4.0); Glomerular Filtration Rate >60 (60-); Glucose, Blood 228 mg/dL (70-99); Magnesium, Blood 2.2 mg/dL (1.6-2.4); Phosphorus, Blood 2.3 mg/dL (2.5-4.9); Potassium, Blood 3.8 mmol/L (3.5-5.5); Sodium, Blood 147 mmol/L (136-145)
--- NOTE | 2020-02-24 07:21 | NUR ---
SUMMARY PATIENT SLEEPING OFF AND ON T/O NIGHT, CPAP 6 FIO2 60% IN PLACE T/O NIGHT. WHEN OFF BIPAP PLACED ON 15L/NC AND BIOX DROPPING DOWN TO 86% DURING ORAL CARE. PATIENT ASSISTING WITH REPOSITIONING AT TIMES AND NOT FOLLOWING DIRECTIONS OTHER TIMES. PULLING AT BIPAP, UMANA AND LINES WHEN UNRESTRAINED. BILAT WRIST RESTRAINTS CONTINUE TO PROTECT BIPAP AND LINES AND TUBES. PRECEDEX DRIP CONTINUES TO HELP PATIENT REMAIN CALM AND FENTANYL IV GIVEN FOR CHRONIC BACK PAIN
--- NOTE | 2020-02-24 12:30 | NUR ---
REASSESSMENT PT IS RESTLESS AND MOVING AROUND IN BED CAUSING CPAP TO DISLODGE, SEE EMAR FOR MEDICATION. FIO2 WAS INCREASED AFTER SEDATING MEDICATIONS TO MAINTAIN SP02. RECTAL TUBE REMAINS INPLACE, ONLY DRAINED ENEMA FLUID, NO STOOL RETURN AT THIS TIME. RESTRAINTS REMAIN IN PLACE FOR LINE/TUBE PROTECTION. MONITOR SHOWS PT TO BE IN S[place] A[place].
--- NOTE | 2020-02-24 16:00 | NUR ---
REASSEMENT PT CONTINUES TO BE RESTLESS/AGITATED, REQUIRING INCREASE IN PRECEDEX GTT AND FREQ PRN MEDS. SEE EMAR. PT WAS SWITCHED TO BIPAP 10/6 FIO2 70% TO SUPPORT PT AND MAINTAIN SPO2. PT IS [place] ON THE MONITOR VITALS HAVE BEEN STABLE. RESTRAINTS REMAIN ON TO PROTECT LINES/TUBES.
--- NOTE | 2020-02-24 17:49 | NUR ---
Spiritual care intial note: I met with pt's sister in law, Michelle, at bedside. She has been staying with pt and spouse to help out. Apparently, both need assistance with some ADLs. I listened to stories from family history, provided prayer and encouragement. Gentle patient financial counselor was well recieved. Pt was restless and appeared confused throughout visit. JADE under the impression he may be nearing end-of-life. She said her sister, pt's , would probably not come to visit as she is "too self-centered." Advised I would remain available.
--- NOTE | 2020-02-24 18:44 | NUR ---
SHIFT SUMMARY TODAY PT HAS BEEN VERY RESTLESS, REACHING FOR BIPAP MASK AND YELLING OUT. PRECEDEX INCREASED TO 0.7MCG/KG/HR TODAY, RESTRAINTS REMAIN IN PLACE. NO BM TODAY, ONLY ENEMA RETURN. UMANA REMAINS IN PLACE, URINE IS DARK EZEQUIEL. THIS AFTERNOON PT WAS SWITCHED FROM CPAP TO BIPAP 10/6 FIO2 70% TO KEEP SPO2 UP. PT HAS BEEN TOLERATING THE CHANGE WELL. MONITOR SHOWS PT TO BE IN [place], VITALS HAVE BEEN STABLE.
--- NOTE | 2020-02-24 21:05 | NUR ---
PATIENT AWAKENS EASILY, BECOMING ANXIOUS AND RESTLESS WHEN AWAKE PULLING AT BIPAP AND LINES AND CORDS. CONFUSION CONTINUES, NOT ANSWERING QUESTIONS, FOLLOWING SIMPLE DIRECTIONS BUT NOT ALWAYS CONSISTENT. PRECEDEX CONTINUES TITRATED FROM 0.7 TO 0.5 DUE TO LOW HEART RATE AND BP. FENTANYL IV GIVEN FOR CHRONIC BACK PAIN. BIPAP REMAINS IN PLACE 10/6 FIO2 80%. BIOX DROPPING FAST WHEN BIPAP OFF DESPITE OXYGEN ON AT 10L/NC. RECTAL TUBE IN PLACE FOR LACTULOSE ENEMA'S TO HELP THEM RETAIN BETTER.
--- NOTE | 2020-02-24 23:44 | NUR ---
RECTAL TUBE FOUND IN BED WITH BALLOON INTACT. FLEX OF DARK BROWN STOOL MIXED WITH CLEAR LACTULOSE, TUBE LEFT OUT AND ATTENDS PLACED.
[2020-02-25 04:53] LABS: BASOPHILS ABSOLUTE AUTO 0.05 K/mm3 (0.00-0.23); BASOPHILS PERCENT AUTO 0 % (0-2); EOSINOPHILS ABSOLUTE AUTO 0.26 K/mm3 (0.00-0.68); EOSINOPHILS PERCENT AUTO 2 % (0-6); Hematocrit 30.9 % (37.0-53.0); Hemoglobin 9.9 g/dL (13.5-17.5); IMMATURE GRAN ABSOLUTE AUTO 0.37 K/mm3 (0.00-0.10); IMMATURE GRAN PERCENT AUTO 3 % (0-1); LYMPHOCYTES ABSOLUTE AUTO 0.95 K/mm3 (0.84-5.20); LYMPHOCYTES PERCENT AUTO 7 % (21-46); MONOCYTES PERCENT AUTO 6 % (4-13); Mean Corpuscular HGB 30.8 pg (26.0-34.0); Mean Corpuscular Volume 96 fL (80-100); NEUTROPHILS ABSOLUTE AUTO 11.05 K/mm3 (1.96-9.15); NEUTROPHILS PERCENT AUTO 82 % (41-73); NRBC ABSOLUTE 0.22 K/mm3 (0.00-0.02); NRBC Auto 1.6 /100 WBC (0.0-0.2); RDW Coefficient Variation 17.1 % (11.7-14.2); RDW Standard Deviation 53.1 fL (35.1-46.3); Red Blood Cell Count 3.21 M/mm3 (4.30-5.90); White Blood Cell Count 13.48 K/mm3 (4.00-11.30)
[2020-02-25 04:55] LABS: Mean Platelet Volume 13.2 fL (9.1-12.4); Platelet Count 26 K/mm3 (150-400)
[2020-02-25 05:07] LABS: Anion Gap 4 mmol/L (6-16); Blood Urea Nitrogen 61 mg/dL (8-24); Bun/Creatinine Ratio 56.5 (12.0-20.0); CO2, Blood 23 mmol/L (21-32); Calcium, Blood 7.6 mg/dL (8.5-10.1); Chloride, Blood 114 mmol/L (98-108); Creatinine, Blood 1.08 mg/dL (0.60-1.20); Glomerular Filtration Rate >60 (60-); Glucose, Blood 257 mg/dL (70-99); Magnesium, Blood 2.2 mg/dL (1.6-2.4); Potassium, Blood 4.2 mmol/L (3.5-5.5); Sodium, Blood 141 mmol/L (136-145); Triglycerides 47 mg/dL (30-160)
--- NOTE | 2020-02-25 06:45 | NUR ---
SUMMARY PATIENT SLEEPING OFF AND ON WITH BIPAP IN PLACE / FIO2 65% PATIENT ANXIOUS AND ANGRY WHEN AWAKE, PULLING AT BIPAP AND UMANA. PRECEDEX CONTINUES AT 0.5 MCG. RECTAL TUBE REPLACED DUE TO PATIENT PASSING LIQUID CLEAR MUCUS WITH FLECKS OF DARK BROWN STOOL. UMANA DRAINING DARK ORANGE URINE.
--- NOTE | 2020-02-25 08:32 | NUR ---
CARE OF PT ASSUMED AT 0700. PT SEDATED WITH PRECEDEX AT 0.5MCG FOR AGITATION/CONFUSION. PT BIPAP DEPENDENT 01/05, 65% FIO2 W SATS 90-91%. CRACKLES TO LEFT LOBE. ABD DISTENTED WITH HYPOACTIVE TYMPANIC BT'S. PT DOES NOT OPEN EYES OR FOLLOW COMMANDS BUT IS VERY RESTLESS AND AGITATED IN BED. DR PAEZ AT [facility] THIS AM; LASIX ORDERED.
--- NOTE | 2020-02-25 10:21 | NUR ---
PT UNABLE TO RETAIN LACTULOSE ENEMA; RECTAL TUBE CAME OUT W PRESSURE OF FLUID. PT GIVEN FULL BEDBATH. PT'S DAUGHTER AT [facility], FULL UPDATE GIVEN. RED AREA NOTED TO BRIDGE OF NOSE DESPITE GEL PAD UNDER BIPAP MASK. MASK SWITCHED TO FULL FACE MASK TO TAKE PRESSURE OFF OF NOSE.
--- NOTE | 2020-02-25 14:06 | NUR ---
PT REMAINS RESTLESS/AGITATED W EYES CLOSE, PRECEDEX AT 0.5MCG. FENT 50MCG GIVEN. PICC LINE DRSG CHANGED. MEPILEX FOAM DRSG APPLIED TO BRIDGE OF NOSE, ORAL CARE PROVIDED. TOLERATING FULL FACE MASK WELL. PT'S UPDATED VIA PHONE. NO OTHER CHANGES.
--- NOTE | 2020-02-25 17:30 | NUR ---
Spiritual care note: I met with pt's dtr, Marii, at bedside. She filled me in on some of her father's history of severe PTSD post-Viet[place] war. She beleives this is the reason he drinks. He has never sought family life counselor. Prayer and gentle family life counselor was well-recieved. Pt appeared to be sleeping peacefully throughout conversation, with only occassional twitches. He appears more calm today, but was not responsive to voice. [employer] services will remain available.
--- NOTE | 2020-02-25 18:29 | NUR ---
NEW ORDERS PER DR WAGNER. LASIX GIVEN. D5W DC'D. PRECEDEX REMAINS AT 0.5MCG. PT FIGHTS AGAINST CARE; AGITATED AND RESTLESS INTERMIT. T/O SHIFT. ATTEMPTS TO PULL OFF BIPAP CONSISTENTLY, DURING THESE PERIODS PT'S SATS DROP TO LOW 80'S. SATS NOW 90-93% ON 70% FIO2. PT INCONTINENT OF SCANT AMTS OF RETAINED LACTULOSE.
--- NOTE | 2020-02-25 21:21 | NUR ---
ASSUMED CARE: PT NOT A&O. MOANS AND MOVES HEAD BACK AND FORTH. APPEARS AGITATED AT TIMES. IS IN RESTRAINTS BUT ATTEMPTS TO REACH FOR BIPAP. IN NSR-SB. HR IN THE 60S CURRENTLY. SBP IN THE 90S. BIPAP SETTINGS ARE 10/9/70%. SPO2 AT 90%. DESATS QUICKLY WHEN BIPAP COMES OFF. PTS ABD IS SEVERELY DISTENDED AND FIRM. BT X 4 HYPOACTIVE. PT HAS PICC TO LISA AND PIV TO ALEXANDRA.. PRECEDEX INFUSING AT 0.5MCG, CLINIMIX INFUSING AT 100MLS/HR.
--- NOTE | 2020-02-25 23:30 | NUR ---
ATTEMPTED LACTULOSE ENEMA. IMMEDIATE RETURN OF LACTULOSE WITH SOME REGAN RED BLOOD. ENEMA INFUSION STOPPED AND PROVIDER NOTIFIED.
--- NOTE | 2020-02-26 03:01 | NUR ---
TUBING TO EZIO MASK CONTINUOUSLY BECAME DISCONNECTED FROM MASK CAUSING PT TO RAPIDLY DESAT. RT CALLED AND REGULAR FACE MASK PUT ON. CURRENTLY HAS A GOOD SEAL AND PT SPO2 97%.
[2020-02-26 03:30] LABS: Hematocrit 29.3 % (37.0-53.0); Hemoglobin 9.4 g/dL (13.5-17.5); Mean Corpuscular HGB 30.7 pg (26.0-34.0); Mean Corpuscular HGB Conc 32.1 g/dL (31.5-36.5); Mean Corpuscular Volume 96 fL (80-100); NRBC ABSOLUTE 0.32 K/mm3 (0.00-0.02); NRBC Auto 2.8 /100 WBC (0.0-0.2); RDW Coefficient Variation 17.3 % (11.7-14.2); RDW Standard Deviation 52.6 fL (35.1-46.3); Red Blood Cell Count 3.06 M/mm3 (4.30-5.90); White Blood Cell Count 11.36 K/mm3 (4.00-11.30)
[2020-02-26 03:37] LABS: Platelet Count 20 K/mm3 (150-400)
[2020-02-26 03:44] LABS: International Normalized Ratio 2.82; Prothrombin Time Results 28.5 Sec (9.7-11.5)
[2020-02-26 03:46] LABS: Albumin, Blood 2.3 g/dL (3.4-5.0); Bilirubin, Total 2.2 mg/dL (0.1-1.0); Bun/Creatinine Ratio 53.8 (12.0-20.0); Calcium, Blood 7.6 mg/dL (8.5-10.1); Creatinine, Blood 1.3 mg/dL (0.60-1.20); Globulin, Blood 2.4 g/dL (2.2-4.0); Magnesium, Blood 2.3 mg/dL (1.6-2.4); Phosphorus, Blood 3.6 mg/dL (2.5-4.9); Potassium, Blood 5.2 mmol/L (3.5-5.5); Total Protein, Blood 4.7 g/dL (6.4-8.2)
[2020-02-26 03:58] LABS: BAND PERCENT MAN 9 % (0-8); BASOPHILS PERCENT MAN 0 % (0-2); EOSINOPHILS ABSOLUTE MAN 0.11 K/mm3 (0.00-0.68); EOSINOPHILS PERCENT MAN 1 % (0-6); LYMPHOCYTES ABSOLUTE MAN 0.56 K/mm3 (0.84-5.20); LYMPHOCYTES PERCENT MAN 5 % (21-46); METAMYELOCYTE ABSOLUTE MAN 0.11 K/mm3 (0.00-0.00); METAMYELOCYTE PERCENT MAN 1 % (0-0); MONOCYTES PERCENT MAN 15 % (4-13); MYELOCYTE ABSOLUTE MAN 0.11 K/mm3 (0.00-0.00); MYELOCYTE PERCENT MAN 1 % (0-0); NEUTROPHILS ABSOLUTE MAN 8.74 K/mm3 (1.96-9.15); SEG NEUTROPHILS PERCENT MAN 68 % (41-73); TOTAL CELLS COUNTED 100
--- NOTE | 2020-02-26 06:24 | NUR ---
SHIFT SUMMARY: NO ACUTE CHANGES T/O SHIFT. PT NOT A&O. VITALS REMAINED STABLE. SINUS ABDON AT TIMES. AT BEGINNING OF SHIFT TUBING KEPT BECOMING DISCONNECTED FROM EZIO MASK, SO MASK WAS CHANGED OUT. PT HAS A GOOD SEAL AND TUBING REMAINED CONNECTED. SPO2 >90%. HE DOES BECOME AGITATED AT TIMES MOANING OUT AND SHAKING HEAD BACK AND FORTH. FENTANYL GIVEN X 2. PRECEDEX INCREASED TO 0.7MCG. BOTH EFFECTIVE. SOME URINE OUTPUT THAT WAS DARK EZEQUIEL IN COLOR. NO BM THIS SHIFT. PICC TO LISA AND ALEXANDRA PIV PATENT AND SL. WILL PASS REPORT TO ONCOMING RN
--- NOTE | 2020-02-26 08:05 | NUR ---
PT SEDATED ON PRECEDEX AT 0.7MCG FOR CONFUSION, AGITATION; PT WILL NOT KEEP BIPAP ON WITHOUT SEDATION. PT RESTLESS IN BED W EYES OPEN, QUIETLY MUMBLING INCOHERENTLY. PT PULLS AT RESTRAINTS AT TIMES. PT HAS SOME HYPOTENSION E HEART RATE IN 50'S. PRECEDEX DECREASED TO 0.5MCG. PT HAS CRACKLES TO BASES BILAT W OCCASSIONAL SCATTERED EXP WHEEZE. BIPAP 10/6 WITH FIO2 AT 70%. RATE 20-30'S DEPENDING ON AGITATION. SATS 90-94%. PT DESATURATES QUICKLY WITH ANY BREAK OF BIPAP.
--- NOTE | 2020-02-26 09:00 | NUR ---
PT W LABILE BP'S. PRECEDEX PLACED ON HOLD FOR 30MIN THEN RESTARTED AT 0.2MCG. BP STABLE AT THIS TIME. PT REMAINS RESTLESS IN BED.
--- NOTE | 2020-02-26 09:35 | NUR ---
DR LEMUS IN UNIT AND GIVEN UPDATE. LACTULOSE ENEMA ON HOLD FOR NOW. MAY CHECK WITH GI ABOUT PLACING NG FOR LACTULOSE PT HAS NOT BEEN ABLE TO RETAIN ANY OF THE ENEMAS. KUB ORDERED.
--- NOTE | 2020-02-26 10:32 | NUR ---
PT VERY AGITATED, PULLING ON RESTRAINTS AND PULLING AT BIPAP. PT THROWING LEGS OFF SIDE OF BED. KUB COMPLETED, FENT GIVEN FOR PAIN AND REPOSITIONED.
--- NOTE | 2020-02-26 14:43 | NUR ---
1340: PT PLACED ON HIGH LALI N/C AT 15L FOR DOBBHOFF PLACEMENT. LARGE CAST/HARD MUCUS NOTED TO BACK OF THROAT. UNABLE TO REMOVE MUCUS W SUCTION CATH. SATS BEGAN TO DROP; RT CALLED TO BEDSIDE, NON REBREATHER PLACED. DR LEMUS AT BEDSIDE WITHIN MIN OF DESATURATION. PT BEGAN AGINAL RESP'S; BAG/MASK AT 100% USED ON PT BY RT ALONG W JAW THRUST. DR LEMUS REMOVED 3 LARGE CAST/HARD MUCUS PLUGS FROM BACK OF THROAT. PT'S SATS RECOVERED AFTER MATERIAL REMOVED AND BIPAP REPLACED AT 80% FIO2. DR LEMUS UPDATED PT'S . DOBBHOFF PLACEMENT TO BE DELAYED UNTIL TOMORROW PER DR LEMUS.
--- NOTE | 2020-02-26 17:10 | NUR ---
PT REMAINS RESTLESS AND NONVERBAL OTHER THAN OCCASSIONAL MOANING/MUMBLING. PRECEDEX AT 0.3MCG; BP HYPOTENSIVE W MOST MAPS >60. FIO2 INCREASED TO 80% AFTER VERY BRIEF ORAL CARE (LASTING LESS THAN 1 MIN) DROPPED HIS SPO2 TO 88%. LACTULOSE ENEMA TO BE HELD TONIGHT.
--- NOTE | 2020-02-26 17:47 | NUR ---
500CC NS BOLUS STRATED ON PT PER DR LEMUS. HR 115-125. RESP 20- LOW 30'S. SATS 93% ON 80% FIO2. FULL FACE MASK ON D/T PRESSURE SORE ON BRIDGE OF NOSE. MASK IS STAYING ON WELL W NO LEAK.
--- NOTE | 2020-02-26 19:33 | NUR ---
ASSUMED CARE: PT NOT A&O. ON BIPAP WITH EZIO MASK ON. GOOD SEAL. SPO2 DROPPED AT SHIFT CHANGE AND STAYED AT 87-88%. FIO2 INCREASED TO 90%. SPO2 CURRENTLY >90%. APPEARS LESS AGITATED. SBP HAS BEEN SOFT DURING DAYSHIFT. CURRENTLY IN THE 80S. PT IS TACHYCARDIC IN THE 110S. UMANA IN PLACE. SMALL AMT OF DARK URINE IN COLLECTION CANISTER. SPOKE WITH DR LEMUS RE LACTULOSE ENEMA. PER ALLAN HOLDING LACTULOSE ENEMA UNTIL DOBHOFF CAN BE PLACED TOMORROW. WILL CONTINUE TO MONITOR
--- NOTE | 2020-02-26 22:38 | NUR ---
DURING ORAL CARE PT DESATTED WITH POM MASK ON AT 15L. PT QUICKLY DROPPED TO AN SPO2 OF 70%. BIPAP PLACED BACK ON PT AND IT TOOK PT QUITE AWHILE TO RECOVER. DURING THIS TIME SBP DROPPED FROM 80S TO 70S. CALL PLACED TO DR LEMUS WHO ORDERED LEVOPHED TO BE STARTED AND BIPAP SETTINGS CHANGED TO 14/8. PT IS ALREADY AT A FIO2 OF 100%. WILL CONTINUE TO MONITOR
--- NOTE | 2020-02-26 23:15 | NUR ---
PT ON LEVOPHED AT 20MCG. SBP STILL 70S. CALL PLACED TO DR LEMUS. ORDERS RECEIVED FOR STAT H&H, 1L NS BOLUS, AND VASOPRESSIN
[2020-02-26 23:19] LABS: Hematocrit 36.5 % (37.0-53.0)
--- NOTE | 2020-02-26 23:50 | NUR ---
LEVOPHED CURRENTLY AT 30MCG. VASOPRESSIN STARTED. SBP 79.
[2020-02-27 04:32] LABS: Magnesium, Blood 2.4 mg/dL (1.6-2.4)
[2020-02-27 04:39] LABS: Albumin, Blood 2.5 g/dL (3.4-5.0); Albumin/Globulin Ratio 0.8 (0.8-1.8); Bilirubin, Total 4.2 mg/dL (0.1-1.0); Bun/Creatinine Ratio 33.8 (12.0-20.0); Calcium, Blood 7.6 mg/dL (8.5-10.1); Creatinine, Blood 2.16 mg/dL (0.60-1.20); Globulin, Blood 3.1 g/dL (2.2-4.0); Total Protein, Blood 5.6 g/dL (6.4-8.2)
[2020-02-27 05:23] LABS: Phosphorus, Blood 7.3 mg/dL (2.5-4.9); Potassium, Blood 7.6 mmol/L (3.5-5.5)
--- NOTE | 2020-02-27 05:55 | NUR ---
CALL PLACED TO DR ALLAN FITZPATRICK POTASSIUM 7.6. ORDERS RECEIVED FOR CALCIUM GLUC 1 GM, 10U IV INSULIN, 1 AMP D50, 1 AMP BICARB.
--- NOTE | 2020-02-27 06:45 | NUR ---
PT BEGAN TO DESAT. APPEARED TO POSSIBLY HAVE A CAST IN MOUTH. TOOK BIPAP OFF AND PLACED POM MASK ON PT. ATTEMPTED TO SUCTION AND SUCTION SWAB MOUTH. MINIMAL AMOUNT OF CASTS OUT. PLACED BIPAP BACK ON AND PT SATS AR 85-86% AND HOLDING. LEVOPHED IS DOWN TO 20MCG AND SBP IS IN THE 140S. WHILE SUCTIONING NOTICED THAT PT DID NOT HAVE ANY GAG REFLEX. POTASSIUM ELEVATED THIS AM. SEE LAST NN. REPEAT K+ TO BE DONE AT 0800. CLINIMIX STARTED LATE D/T PHARMACY NOT SENDING IT DOWN UNTIL AFTER 0500. WHEN CAME ON SHIFT THE CLINIMIX BAG HANGING WAS THE WRONG MIX OF AMINO ACIDS AND DEXTROSE. WAITED FOR CORRECT BAG FOR AWHILE. NEDITA AWARE THAT PT HAD WRONG BAG HANGING. WILL PASS REPORT TO ONCOMING SHIFT
--- NOTE | 2020-02-27 07:15 | NUR ---
BEGINNING OF SHIFT Assumed care of pt at 0700. Bedside report recieved from Luis GAFFNEY. Pt opens eyes to sternal rub. Pt restrained as pt is BiPAP dependent and previously was pulling at cords and lines. Will assess continued need of restraint. Pt on BiPAP 14/8 and 100% FiO2. SpO2 91%. RR 20-24. Tidal volumes 500-575 mL. Lungs clear, dim in bases. Pt on levophed at 20 mcg/min and vasopressin at 0.04 units per minute. Pressors infusing through PICC line. SR with rate in 90s, wide QRS. Per report from Luis, QRS has been gradually widening. Plan to obtain EKG. 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 Urine in catheter tubing is tea colored. SCDs in place for VTE prophylaxis.
--- NOTE | 2020-02-27 08:12 | NUR ---
At this time, levophed 15 mcg/min. Vasopressin 0.04 units/min. MAP 80. Plan to titrate down. EKG obtained for widened QRS. SpO2 95% with BiPAP settings 14/8 and 100% FiO2. Pt eyes opened during repositioning. Left eye 4 mm and responsive to light. Right eye 4 mm, unclear if responsive to light- difficult to visualize due to BiPAP mask. Not safe to remove mask at this time. Oral care not performed at this time.
--- NOTE | 2020-02-27 09:08 | NUR ---
Dr Elder in to see patient. Discussed critical potassium with provider as well as lack of urine output, poor mentation, and overall decompensation. Provider stated she would call pt's to update. Pt's decided to make patient comfort care. Pt's then called unit to ask to speak to patient. Call transferred into room and phone placed to patient's ear so she could say goodbye. She states she will not be coming in to see patient today. This RN plans to update as patient progresses.
--- NOTE | 2020-02-27 10:30 | NUR ---
Patient at 0957, verified by heart auscultation by this RN. Post mortem care performed. Spouse updated. States [facility] as home of choice. States no family will be coming in to see patient. Dr Elder updated. Final discharge done by sash [email or web address].
== END 2020-02-27 09:57 | DRG 871 ==
LOC: ER 09:47 → PCU 09:48 → ICUE 02-19 14:22 → PCU 02-19 14:22 → ICUE 02-20 09:11
PROVIDERS: Emergency Medicine; Hospitalist; Internal Medicine; Internal Medicine Critical Care Medicine; Student in an Organized Health Care Education/Training Program; ADMIT Internal Medicine
PROC: 06L38CZ Occlusion of Esophageal Vein with Extraluminal Device, Via Natural or Artificial Opening Endoscopic (ICD-10-PCS; principal; 2020-02-19 09:45)
PROC: 0DB68ZX Excision of Stomach, Via Natural or Artificial Opening Endoscopic, Diagnostic (ICD-10-PCS; 2020-02-19 09:45)
PROC: 5A09357 Assistance with Respiratory Ventilation, Less than 24 Consecutive Hours, Continuous Positive Airway Pressure (ICD-10-PCS; 2020-02-20)
PROC: 0W9G30Z Drainage of Peritoneal Cavity with Drainage Device, Percutaneous Approach (ICD-10-PCS; 2020-02-20)
PROC: 02HV33Z Insertion of Infusion Device into Superior Vena Cava, Percutaneous Approach (ICD-10-PCS; 2020-02-24)
DX: A41.9 Sepsis, unspecified organism (principal); K72.00 Acute and subacute hepatic failure without coma; J96.01 Acute respiratory failure with hypoxia; I85.11 Secondary esophageal varices with bleeding; G92 Toxic encephalopathy; J69.0 Pneumonitis due to inhalation of food and vomit; N17.9 Acute kidney failure, unspecified; E87.0 Hyperosmolality and hypernatremia; K70.31 Alcoholic cirrhosis of liver with ascites; Z79.82 Long term (current) use of aspirin; Z79.4 Long term (current) use of insulin; J43.9 Emphysema, unspecified; F17.210 Nicotine dependence, cigarettes, uncomplicated; E11.40 Type 2 diabetes mellitus with diabetic neuropathy, unspecified; I10 Essential (primary) hypertension; E87.6 Hypokalemia; Z51.5 Encounter for palliative care; D69.6 Thrombocytopenia, unspecified; R65.20 Severe sepsis without septic shock; F10.10 Alcohol abuse, uncomplicated; Z20.828 Contact with and (suspected) exposure to other viral communicable diseases; Z66 Do not resuscitate; Z78.1 Physical restraint status
CPT/HCPCS: 0241U; 36415; 36569; 36600; 49083; 51702; 70450; 71045; 74018; 80048; 80053; 81001; 82040; 82042; 82105; 82140; 82330; 82803; 82945; 82947; 83605; 83735; 83880; 84100; 84132; 84295; 84478; 85014; 85018; 85025; 85027; 85610; 86317; 86704; 86705; 86708; 86709; 86803; 86850; 86900; 86901; 87040; 87340; 88305; 88342; 89051; 93005; 93010; 94640; 94660; 94760; 94762; 96361-59; 96365-59; 96367-59; 96375; 96375-59; 96376; 96376-59; 99285-25; C1751; C1769; C9113; G0378; G0480; J0610; J0696; J1630; J1815; J1940; J2060; J2354; J2405; J2543; J2704; J2930; J3010; J3480; J7030; J7040; J7042; J7050; J7060; J7070; J7120; P9046